=== PATIENT | female | born 1935 | race Hispanic/Latino ===

== ENCOUNTER 2018-02-06 07:39 | Day surgery (SDC) | payer MEDICARE ==
[~2018-02-06] VITALS: Ht 149.9 cm; Wt 63.6 kg
[2018-02-06] VITALS (8 sets, daily range): BP systolic 111–152; BP diastolic 38–60
[~2018-02-06 07:39] MED LIST: ALEN70TA47 PO; CHOL100044 PO; FURO-152 PO; IOHEXOL-350 50ML VIAL IV ONE; LEVO25TA54 PO; MULT-1203 PO; NAPR-1023 PO; SODIUM CHLORIDE 0.9% 1000ML 1,000 ML IV ONE; VERE240SR PO
[2018-02-06] MEDS ORDERED: PREG50 PO (09:16)
[2018-02-06] MEDS ORDERED: PROPOFOL 10 MG/ML 20ML VIAL IV ONE ×3 (11:11→11:52)
[2018-02-06] MEDS ORDERED: GLUCAGON 1MG KIT 1 MG ML ONE (11:13)
== END 2018-02-06 12:13 | disposition home or self-care (01) ==
LOC: ENDO 07:39 → DAH 07:39 → ENDO 12:13
PROVIDERS: ATTEND Internal Medicine
DX: K83.8 Other specified diseases of biliary tract (principal); Z46.59 Encounter for fitting and adjustment of other gastrointestinal appliance and device; I10 Essential (primary) hypertension; E03.9 Hypothyroidism, unspecified; M19.90 Unspecified osteoarthritis, unspecified site; Z87.442 Personal history of urinary calculi; Z90.49 Acquired absence of other specified parts of digestive tract; Z96.653 Presence of artificial knee joint, bilateral; Z79.899 Other long term (current) drug therapy
CPT/HCPCS: 43262; 43264; 43275; 74328; 74330; 93005; A4606; C1769; C1773; J1610; J2704; J7030; Q9967

== ENCOUNTER → 2022-02-06 | Outpatient (CLI) | payer MEDICARE ==
[~2022-02-06] MED LIST changes: -ALEN70TA47 PO; +ALEN70TA80 PO; -IOHEXOL-350 50ML VIAL IV ONE; -NAPR-1023 PO; +PREG50 PO; -SODIUM CHLORIDE 0.9% 1000ML 1,000 ML IV ONE
[2022-02-06 12:51] LABS: CREATININE 1.2 mg/dL (0.5-1.5)
== END | disposition home or self-care (01) ==
LOC: RAH 09:39
PROVIDERS: ATTEND Internal Medicine Cardiovascular Disease
DX: I15.8 Other secondary hypertension (principal); I10 Essential (primary) hypertension
CPT/HCPCS: 36415; 76770; 80048; 93975